=== PATIENT | male | born 1955 | race Caucasian/White ===

== ENCOUNTER 2017-03-09 14:56 | Outpatient (CLI) | payer OTHER ==
[2017-03-09 18:24] LABS: BASOPHILS # (AUTO) 0.1 10^3/uL (0.0-0.1); BASOPHILS % (AUTO) 0.8 %; EOSINOPHILS # (AUTO) 0.7 10^3/uL (0.0-0.7); EOSINOPHILS % (AUTO) 8.7 %; HCT - HEMATOCRIT 40.8 % (42.0-52.0); HGB - HEMOGLOBIN 14.1 g/dL (14.0-18.0); LYMPHOCYTES # (AUTO) 1.7 10^3/uL (1.5-3.5); LYMPHOCYTES % (AUTO) 22.4 %; MEAN CORPUSCULAR HEMOGLOBIN 31.4 pg (27.0-31.0); MEAN CORPUSCULAR HGB CONC 34.6 g/dL (32.0-36.0); MEAN CORPUSCULAR VOLUME 90.8 fL (80.0-94.0); MEAN PLATELET VOLUME 7.3 fL (7.4-11.4); MONOCYTES % (AUTO) 13.1 %; NEUTROPHILS # (AUTO) 4.2 10^3/uL (1.5-6.6); RED BLOOD COUNT 4.49 10^6/uL (4.70-6.10); RED CELL DISTRIBUTION WIDTH 13.2 % (12.0-15.0); UNCORRECTED WHITE BLOOD COUNT 7.6 x10^3/uL; WHITE BLOOD COUNT 7.6 x10^3/uL (4.8-10.8)
[2017-03-09 18:37] LABS: ALBUMIN/GLOBULIN RATIO 1.4 (1.0-2.2); BILIRUBIN,TOTAL 0.8 mg/dL (0.2-1.0); CALCIUM 9.3 mg/dL (8.5-10.3); CREATININE 1.2 mg/dL (0.6-1.2); POTASSIUM 3.8 mmol/L (3.5-5.0); TOTAL PROTEIN 7.3 g/dL (6.7-8.2)
== END 2017-03-09 14:57 | disposition home or self-care (01) ==
LOC: LAB.F 14:56
PROVIDERS: ATTEND Internal Medicine
DX: I10 Essential (primary) hypertension (principal); E66.9 Obesity, unspecified; M25.551 Pain in right hip
CPT/HCPCS: 36415; 80053; 85025

== ENCOUNTER 2017-03-09 17:22 | Outpatient (CLI) | payer OTHER ==
--- NOTE | 2017-03-11 20:15 | XRAY Report ---
EXAM: RIGHT HIP AND PELVIS RADIOGRAPHY EXAM DATE: 03/09/2017 05:50 PM. HISTORY: HIP PAIN RIGHT. COMPARISONS: None. TECHNIQUE: 1 view of the pelvis and 1 view of the hip. FINDINGS: Bones: Normal. No fracture or bone lesion. Joints: No malalignment. Severe joint space loss with near [id number] laterally. Mild osteophytosis . Soft Tissues: Normal. No soft tissue swelling. IMPRESSION: Advanced right hip arthritic changes with near [id number]. [facility] Referring Provider Line: [phone] SITE ID: [id number]
== END 2017-03-09 17:23 | disposition home or self-care (01) ==
LOC: DI 17:22
PROVIDERS: ATTEND Internal Medicine
DX: M16.11 Unilateral primary osteoarthritis, right hip (principal)
CPT/HCPCS: 36415; 80053; 85025

== ENCOUNTER 2019-02-08 07:35 | Emergency (ER) | payer OTHER ==
[2019-02-08 07:47] VITALS: BP 142/72
--- NOTE | 2019-02-08 07:58 | ED Physician Documentation ---
History of Present Illness - Stated complaint Stated Complaint: COUGH - Chief complaint Chief Complaint: Resp - Additonal information Additional information: This is a 63-year-old male who presents with a cough for 3 to 4 weeks. 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 He was tested for odalis flu there and his test came back negative, however he has had a persistent cough for 3 to 4 weeks. It is usually nonproductive, occasionally he will bring up a small amount of white to light yellow phlegm. No hemoptysis. No leg swelling or history of blood clots. After repeated coughing he also has had some aching on his right side of his chest, otherwise no chest pain. No shortness of breath, myalgias, or fever. He does note that he recently had an abscessed tooth in his mouth which was treated by dentist, and he has been on Augmentin for the last 3 to 4 days. He takes lisinopril for HTN. Review of Systems Constitutional: denies: Fever Throat: reports: Other (+ for recently diagnosed dental abscess, treated) Cardiac: denies: Pedal edema, Calf pain Respiratory: reports: Cough GI: denies: Abdominal Pain, Vomiting PD PAST MEDICAL HISTORY - Past Medical History Cardiovascular: Hypertension - Present Medications Home Medications: Ambulatory Orders Medication Instructions Recorded Confirmed Benzonatate [Tessalon Perle] 100 - 200 mg PO TID PRN #30 capsule 02/08/19 Lisinopril 10 mg PO 02/08/19 - Allergies Allergies/Adverse Reactions: Allergies Allergy/AdvReac Type Severity Reaction Status Date / Time No Known Drug Allergies Allergy Verified 02/08/19 07:47 - Social History Does the pt smoke?: No Smoking Status: Never smoker PD ED PE NORMAL - Vitals Vital signs reviewed: Yes - General General: Alert and oriented X 3, No acute distress - HEENT HEENT: PERRL - Cardiac Cardiac: RRR, No murmur - Respiratory Respiratory: No respiratory distress, Clear bilaterally, Other (Intermittent cough) - Abdomen Abdomen: Non distended - Derm Derm: Warm and dry - Extremities Extremities: No deformity - Neuro Neuro: Alert and oriented X 3 - Psych Psych: Normal mood, Normal affect Results - Vitals Vitals: Vital Signs - 24 hr 02/08/19 07:46 Temperature 36.2 C L Heart Rate 82 Respiratory 18 Rate Blood Pressure 142/72 H O2 Saturation 98 Oxygen O2 Source Room air - Rads (name of study) chest Radiology: Other (No acute cardiopulmonary abnormality.) PD MEDICAL DECISION MAKING - ED course Complexity details: considered differential (Viral syndrome, pneumonia, post viral cough, effusion, pneumothorax, lung mass, atypical pneumonia, ALICE inhibitor cough) ED course: On exam patient is well-appearing, triage vital signs are notable for hypertension. 2 view CXR was obtained showing no acute cardiopulmonary abnormality. Patient's history and exam are not consistent with heart failure, PE, or ACS. I discussed with patient that I do not see signs of an acute bacterial infection that is likely to benefit from antibiotics at this time. No signs of pneumothorax, pneumonia, or effusion on chest x-ray. This may represent a viral syndrome or post viral cough. If his cough is not improving, he may also have a bradykinin/ALICE inhibitor related cough, he can follow-up with his primary care provider to discuss changes to this medication if his cough persists. We will trial tessalon perles and he may also try tea with honey. Return precautions discussed and patient was discharged home. Departure - Departure Disposition: 01 Home, Self Care Clinical Impression: Cough Condition: Good Instructions: ED Cough Chronic Cause Unkn Follow-Up: Amadeo Carmona MD [Primary Care Provider] - Within 1 week Prescriptions: Benzonatate [Tessalon Perle] 100 - 200 mg PO TID PRN #30 capsule PRN Reason: Cough Comments: You were seen today for cough. I do not see signs of pneumonia or other clear abnormality on your chest XR. You may try tessalon perles for the cough, also try tea with honey. Please follow up with your PCP. If your cough persists, it may be due to the lisinopril and this may need to be changed. If you have fever, shortness of breath, blood in your sputum, please return to the ED.
--- NOTE | 2019-02-08 08:47 | XRAY Report ---
Reason: cough x 3-4weeks Procedure Date: 02/08/2019 Accession Number: [id number] / [id number] Procedure: XR - Chest 2 View X-Ray CPT Code: 80284 FULL RESULT: EXAM: CHEST RADIOGRAPHY EXAM DATE: 02/08/2019 08:10 AM. CLINICAL HISTORY: Cough x 3-4weeks. COMPARISON: None. TECHNIQUE: 2 views. FINDINGS: Lungs/Pleura: No focal airspace opacities. No pleural effusion or pneumothorax. Mediastinum: Cardia mediastinal silhouette is within normal limits. Pulmonary vasculature is unremarkable. Other: None. IMPRESSION: No acute cardiopulmonary abnormality. [facility]
== END 2019-02-08 08:56 | disposition home or self-care (01) ==
LOC: ED 07:35
DX: R05 Cough (principal); I10 Essential (primary) hypertension
CPT/HCPCS: 71046; 99283; 99284

== ENCOUNTER 2019-02-18 09:55 | Outpatient (CLI) | payer OTHER ==
[2019-02-18 18:50] LABS: ALBUMIN/GLOBULIN RATIO 1.2 (1.0-2.2); ALKALINE PHOSPHATASE 34 IU/L (42-121); ALT ALANINE AMINOTRANSFERASE 17 IU/L (10-60); AST ASPARTATE AMINOTRANSFERASE 17 IU/L (10-42); BILIRUBIN,TOTAL 0.6 mg/dL (0.2-1.0); BUN - BLOOD UREA NITROGEN 20 mg/dL (6-20); CARBON DIOXIDE - CO2 28 mmol/L (21-32); CHLORIDE 104 mmol/L (101-111); CHOL/HDL RATIO 3.8 (<5.0); CHOLESTEROL 192 mg/dL; GFR - MDRD 75 (>89); GLUCOSE 117 mg/dL (70-100); HDL CHOLESTEROL 51 mg/dL; LDL CHOLESTEROL,CALCULATED 131 mg/dL; LDL/HDL RATIO 2.6 (<3.6); SODIUM 139 mmol/L (135-145); TOTAL PROTEIN 7.3 g/dL (6.7-8.2); VLDL CHOLESTEROL 10 mg/dL
== END 2019-02-18 09:56 | disposition home or self-care (01) ==
LOC: LAB.S 09:55
PROVIDERS: ATTEND Internal Medicine
DX: Z00.00 Encounter for general adult medical examination without abnormal findings (principal); I10 Essential (primary) hypertension; Z12.5 Encounter for screening for malignant neoplasm of prostate
CPT/HCPCS: 36415; 80053; 80061; 83721; 84153

== ENCOUNTER 2020-03-24 17:40 | Outpatient (CLI) | payer OTHER | END 2020-03-24 17:41 | disposition home or self-care (01) | LOC: COV 17:40 | PROVIDERS: ATTEND Family Medicine | DX: Z20.828 Contact with and (suspected) exposure to other viral communicable diseases (principal) ==

== ENCOUNTER 2020-05-06 09:26 | Outpatient (CLI) | payer OTHER | END 2020-05-06 09:27 | disposition home or self-care (01) | LOC: COV 09:26 | PROVIDERS: ATTEND Family Medicine | DX: Z20.828 Contact with and (suspected) exposure to other viral communicable diseases (principal) ==

== ENCOUNTER 2020-07-13 10:05 | Outpatient (CLI) | payer OTHER | END 2020-07-13 10:06 | disposition home or self-care (01) | LOC: COV 10:05 | PROVIDERS: ATTEND Family Medicine | DX: Z20.822 Contact with and (suspected) exposure to COVID-19 (principal) ==